=== PATIENT | male | born 1970 | race Caucasian/White ===

== ENCOUNTER 2017-03-28 14:43 | Inpatient (IN) | payer OTHER ==
[2017-03-28 17:08] VITALS: BMI 24.7
--- NOTE | 2017-03-28 17:21 | HP ---
CIWA Score - CIWA Score Nausea/Vomitin-Int. Nausea w/Dry Heave Muscle Tremors: 4-Moderate,w/Arms Extend Anxiety: 5 Agitation: 3 Paroxysmal Sweats: 1-Minimal Palms Moist Orientation: 0-Oriented Tacttile Disturbances: 2-Mild Itch/Numbness/Burn Auditory Disturbances: 0-None Visual Disturbances: 0-None Headache: 1-Very Mild CIWA-Ar Total Score: 20 Admission ROS BHS - HPI Chief Complaint: DETOX TX FOR ALCOHOL DEPENDENCE Allergies/Adverse Reactions: Allergies Allergy/AdvReac Type Severity Reaction Status Date / Time No Known Allergies Allergy Verified 03/28/17 17:05 History of Present Illness: 47 Y/O MALE WITH A HX OF ALCOHOL DEPENDENCE SEEKING DETOX TX. FIRST TIME HERE. Exam Limitations: No Limitations - Ebola screening Have you traveled outside of the country in the last 21 days: No Have you had contact with anyone from an Ebola affected area: No Have you been sick,other than usual withdrawal symptoms: No Do you have a fever: No - Review of Systems Constitutional: Chills, Night Sweats, Changes in sleep EENT: reports: Blurred Vision (WEARS GLASSES/CONTACT LENSES. HAS CONTACT IN LEFT EYE NOW. LOST THE RIGHT CONTACT.) Respiratory: reports: No Symptoms reported Cardiac: reports: Lightheadedness GI: reports: Nausea, Poor Fluid Intake : reports: Frequency Musculoskeletal: reports: Back Pain, Joint Pain, Muscle Pain Integumentary: reports: No Symptoms Reported Neuro: reports: Headache, Numbness, Seizure (LAST EPISODE IN DECEMBER 2016), Tingling, Tremors, Unsteady Gait, Dizziness Endocrine: reports: No Symptoms Reported Hematology: reports: Anemia Psychiatric: reports: Orientated x3, Anxious, Depressed Other Systems: Reviewed and Negative Patient History - Patient Medical History Hx Anemia: Yes (NO CURRENT MED) Hx Asthma: No Hx Chronic Obstructive Pulmonary Disease (COPD): No Hx Cardiac Disorders: No Hx Hypertension: No Hx Hypercholesterolemia: No HX Cerebrovascular Accident: No Hx Seizures: Yes (etoh related last 01/01) Hx Diabetes: No Hx Gastrointestinal Disorders: No Hx Genitourinary Disorders: No Hx Sexually Transmitted Disorders: No Hx Renal Disease (ESRD): No Hx Thyroid Disease: No Hx Human Immunodeficiency Virus (HIV): No (NEGATIVE HX) Hx Hepatitis C: No Hx Depression: Yes (NOT CURRENTLY ON MED) Hx Suicide Attempt: No (DENIES) Hx Schizophrenia: Yes - Patient Surgical History Past Surgical History: Yes Hx Orthopedic Surgery: Yes (RIGHT HAND SX DUE TO FX IN 1980) Anesthesia Reaction: No - PPD History Previous Implant?: Yes Documented Results: Negative w/o proof Implanted On Prior R Admission?: No PPD to be Administered?: Yes - Reproductive History Patient is a Female of Child Bearing Age (11 -55 yrs old): No (MALE) Patient : (N/A) - Smoking Cessation Smoking history: Current every day smoker Have you smoked in the past 12 months: Yes Aproximately how many cigarettes per day: 10 Hx Chewing Tobacco Use: No Initiated information on smoking cessation: Yes 'Breaking Loose' booklet given: 03/28/17 - Substance & Tx. History Hx Alcohol Use: Yes (BEER) Hx Substance Use: No (DENIES) Substance Use Type: Alcohol Hx Substance Use Treatment: Yes (LAST TX AT [facility].) - Substances Abused Alcohol Route: Oral Frequency: Daily Amount used: 12PK BEER Age of first use: 17 Date of Last Use: 03/27/17 Family Disease History - Family Disease History Family History: Denies (EXCEPT 2 AUNTS WITH DM) Admission Physical Exam BHS - Vital Signs Vital Signs: Vital Signs - 24 hr 03/28/17 17:02 Temperature 99.8 F H Pulse Rate 75 Respiratory 18 Rate Blood Pressure 136/87 - Physical General Appearance: Yes: Moderate Distress, Irritable, Anxious HEENTM: Yes: EOMI, Normocephalic, GINA, Pharynx Normal Respiratory: Yes: Chest Non-Tender, Lungs Clear, Normal Breath Sounds, No Respiratory Distress Neck: Yes: No masses,lesions,Nodules, Supple, Trachea in good position Breast: Yes: Breast Exam Deferred Cardiology: Yes: Regular Rhythm, Regular Rate, S1, S2 Abdominal: Yes: Normal Bowel Sounds, Non Tender, Soft Genitourinary: Yes: Other (N/C) Back: Yes: Within Normal Limits Musculoskeletal: Yes: full range of Motion, Gait Steady Extremities: Yes: Normal Range of Motion, Non-Tender, Tremors Neurological: 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: 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 II-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
[2017-03-28] MEDS ORDERED: MAGNESIUM HYDROX 2400MG/30ML ORAL SUSPENSION 30 ML CUP PO PRN (17:31)
[2017-03-28] MEDS ORDERED: guaiFENesin/D-METHORPHAN HB 10 ML UNIT-DOSE CUPS PO PRN (17:31)
[2017-03-28] MEDS ORDERED: hydrOXYzine PAMOATE 25 MG CAPSULE (FP) PO PRN (17:31)
[2017-03-28] MEDS ORDERED: MENTHOL/PHENOL 1 EACH UD MM PRN (17:31)
[2017-03-28] MEDS ORDERED: MAGNESIUM CITRATE 300 ML BOTTLE PO PRN (17:31)
[2017-03-28] MEDS ORDERED: LOPERAMIDE HCL 2 MG CAPSULE PO PRN (17:31)
[2017-03-28] MEDS ORDERED: MAG HYDROX/AL HYDROX/SIMETH 30 ML UNIT-DOSE CUP PO PRN (17:31)
[2017-03-28] MEDS ORDERED: chlordiazePOXIDE HCL 25 MG CAPSULE PO ONE (17:31)
[2017-03-28] MEDS ORDERED: NICOTINE POLACRILEX 2 MG GUM BC PRN (17:31)
[2017-03-28] MEDS ORDERED: IBUPROFEN 400 MG TABLET (FP) PO PRN (17:31)
[2017-03-28] MEDS ORDERED: P-EPHED 60MG/TRIPROLIDI 2.5MG TABLET PO PRN (17:31)
[2017-03-28] MEDS ORDERED: chlordiazePOXIDE HCL 25 MG CAPSULE PO PRN (17:31)
[2017-03-28] MEDS ORDERED: ACETAMINOPHEN 325 MG TABLET (FP) PO PRN (17:31)
[2017-03-28] MEDS: NICOTINE 14 MG/24 HOURS TOPICAL PATCH TD SCH (18:34)
[2017-03-28] MEDS: THIAMINE HCL 100 MG TABLET (FP) PO SCH (22:04)
[2017-03-28] MEDS: diphenhydrAMINE HCL 50 MG CAPSULE PO PRN (22:05)
[2017-03-28] MEDS: chlordiazePOXIDE HCL 25 MG CAPSULE PO SCH (22:05)
[2017-03-28 23:12] LABS: URINE APPEARANCE SL CLOUDY; URINE BILIRUBIN NEGATIVE (NEGATIVE); URINE BLOOD NEGATIVE (NEGATIVE); URINE COLOR LT. YELLOW; URINE GLUCOSE (UA) NEGATIVE (NEGATIVE); URINE KETONE NEGATIVE (NEGATIVE); URINE NITRITE NEGATIVE (NEGATIVE); URINE PROTEIN NEGATIVE (NEGATIVE); URINE UROBILINOGEN 0.2 mg/dL (0.2-1.0)
[2017-03-29] MEDS: chlordiazePOXIDE HCL 25 MG CAPSULE PO SCH ×4 (05:37→22:08)
[2017-03-29 09:46] LABS: MCH 31.4 pg (25.7-33.7); MCHC 33.2 g/dl (32.0-35.9); MEAN CELL VOLUME 94.5 fl (80-96); MEAN PLT VOLUME 8.3 fl (7.5-11.1); PLATELET COUNT 297 K/MM3 (134-434); RDW 15.1 % (11.9-15.9); WHITE BLOOD COUNT 8.5 K/mm3 (4.0-10.0)
[2017-03-29] MEDS: NICOTINE 14 MG/24 HOURS TOPICAL PATCH TD SCH (10:05)
[2017-03-29] MEDS: PRENATAL VITAMINS W/ FOLIC ACID TABLET (FP) PO SCH (10:05)
[2017-03-29 10:11] LABS: ALBUMIN 3.6 g/dl (3.4-5.0); ALK PHOS 269 U/L (45-117); ANION GAP 8 (8-16); BILIRUBIN,TOTAL 0.4 mg/dL (0.2-1.0); CALCIUM 8.9 mg/dL (8.5-10.1); CO2 27 mmol/L (21-32); CREATININE 0.8 mg/dL (0.7-1.3); GLUCOSE,RANDOM 96 mg/dL (74-106); SGOT/AST 25 U/L (15-37); SGPT/ALT 49 U/L (12-78); TOT PROT 6.7 g/dl (6.4-8.2)
--- NOTE | 2017-03-29 10:31 | CONSULT ---
[facility] Psychiatric Consult - Data Date of interview: 03/29/17 Admission source: [facility] Identifying data: First admission to [facility] for this 47 y/o male seeking detox treatment on for alcohol dependence.Patient is single without children,homeless,unemployed and supported on [employer] benefits. Substance Abuse History: Confirmed by patient in this interview. Smoking Cessation. Smoking history: Current every day smoker. Have you smoked in the past 12 months: Yes. Aproximately how many cigarettes per day: 10. Hx Chewing Tobacco Use: No. Initiated information on smoking cessation: Yes. 'Breaking Loose' booklet given: 03/28/17. - Substance & Tx. History. Hx Alcohol Use: Yes (BEER). Hx Substance Use: No (DENIES). Substance Use Type: Alcohol. Hx Substance Use Treatment: Yes (LAST TX AT [facility] - Substances Abused. Alcohol. Route: Oral. Frequency: Daily. Amount used: 12PK BEER. Age of first use: 17. Date of Last Use: 03/27/17 Medical History: Anemia,alcohol-related seizures and a history of orthosurgery for fracture of riight hand (1980). Psychiatric History: Patient admits to one psychiatric hospitalization at [facility].He endorses the diagnosis of MDD ( schizophrenia as per [facility] report : patient denies).Mr Jackson denies history of OPD care.Not on psychotropic medications (survey of recent phrmacy claims shows script dated 01/20/17 for abilify 5 mg Tab # 30).Patient is clearly an unreliable historian.He denies history of suicide attempts. Physical/Sexual Abuse/Trauma History: Patient denies history of abuse. Additional Comment: Drug Screen is negative. Mental Status Exam - Mental Status Exam Alert and Oriented to: Time, Place, Person Cognitive Function: Grossly Intact Patient Appearance: Unkempt, Disheveled Mood: Nervous, Withdrawn Affect: Mood Congruent Patient Behavior: Fatigued, Guarded Speech Pattern: Clear Voice Loudness: Normal Thought Process: Goal Oriented Thought Disorder: Not Present Hallucinations: Denies Suicidal Ideation: Denies Homicidal Ideation: Denies Insight/Judgement: Poor Sleep: Well (self-report) Appetite: Good Gait/Station: Normal Psychiatric Findings - Problem List ([place] 1, 2,3) (1) Alcohol dependence with uncomplicated withdrawal Current Visit: Yes Status: Acute (2) Nicotine dependence Current Visit: Yes Status: Acute (3) Substance induced mood disorder Current Visit: Yes Status: Acute (4) Hx of seizure disorder Current Visit: Yes Status: Chronic (5) History of anemia Current Visit: Yes Status: Suspected - Initial Treatment Plan Initial Treatment Plan: Psychoeducation.Detoxification.Patient declines psychotropic medications other than detox protocol.Observation.
--- NOTE | 2017-03-29 11:21 | PN ---
[facility] CIWA - CIWA Score Nausea/Vomitin-No Nausea/No Vomiting Muscle Tremors: 4-Moderate,w/Arms Extend Anxiety: 4-Mod. Anxious/Guarded Agitation: 4-Moderately Restless Paroxysmal Sweats: 1-Minimal Palms Moist Orientation: 0-Oriented Tacttile Disturbances: 3-Moderate Itch/Numb/Burn Auditory Disturbances: 0-None Visual Disturbances: 0-None Headache: 0-None Present CIWA-Ar Total Score: 16 BHS Progress Note (SOAP) Subjective: ANXIETY,SWEATS,TREMORS,INTERMITTENT SLEEP. Objective: 03/29/17 11:20 Vital Signs Temperature 98.5 F 03/29/17 09:12 Pulse Rate 83 03/29/17 09:12 Respiratory Rate 18 03/29/17 09:12 Blood Pressure 119/76 03/29/17 09:12 O2 Sat by Pulse Oximetry (%) Laboratory Last Values WBC 8.5 K/mm3 (4.0-10.0) 03/29/17 07:00 RBC 4.90 M/mm3 (4.00-5.60) 03/29/17 07:00 Hgb 15.4 GM/dL (11.7-16.9) 03/29/17 07:00 Hct 46.3 % (35.4-49) 03/29/17 07:00 MCV 94.5 fl (80-96) 03/29/17 07:00 MCH 31.4 pg (25.7-33.7) 03/29/17 07:00 MCHC 33.2 g/dl (32.0-35.9) 03/29/17 07:00 RDW 15.1 % (11.9-15.9) 03/29/17 07:00 Plt Count 297 K/MM3 (134-434) 03/29/17 07:00 MPV 8.3 fl (7.5-11.1) 03/29/17 07:00 Sodium 141 mmol/L (136-145) 03/29/17 07:00 Potassium 4.1 mmol/L (3.5-5.1) 03/29/17 07:00 Chloride 106 mmol/L (98-107) 03/29/17 07:00 Carbon Dioxide 27 mmol/L (21-32) 03/29/17 07:00 Anion Gap 8 (8-16) 03/29/17 07:00 BUN 17 mg/dL (7-18) 03/29/17 07:00 Creatinine 0.8 mg/dL (0.7-1.3) 03/29/17 07:00 Creat Clearance w eGFR > 60 (>60) 03/29/17 07:00 Random Glucose 96 mg/dL (74-106) 03/29/17 07:00 Calcium 8.9 mg/dL (8.5-10.1) 03/29/17 07:00 Total Bilirubin 0.4 mg/dL (0.2-1.0) 03/29/17 07:00 AST 25 U/L (15-37) 03/29/17 07:00 ALT 49 U/L (12-78) 03/29/17 07:00 Alkaline Phosphatase 269 U/L (45-117) H 03/29/17 07:00 Total Protein 6.7 g/dl (6.4-8.2) 03/29/17 07:00 Albumin 3.6 g/dl (3.4-5.0) 03/29/17 07:00 Urine Color Lt. yellow 03/28/17 18:30 Urine Appearance Sl cloudy 03/28/17 18:30 Urine pH 8.0 (5.0-8.0) 03/28/17 18:30 Urine Protein Negative (NEGATIVE) 03/28/17 18:30 Urine Glucose (UA) Negative (NEGATIVE) 03/28/17 18:30 Urine Ketones Negative (NEGATIVE) 03/28/17 18:30 Urine Blood Negative (NEGATIVE) 03/28/17 18:30 Urine Nitrite Negative (NEGATIVE) 03/28/17 18:30 Urine Bilirubin Negative (NEGATIVE) 03/28/17 18:30 Urine Urobilinogen 0.2 mg/dL (0.2-1.0) 03/28/17 18:30 Assessment: 03/29/17 11:20 WITHDRAWAL SX Plan: CONTINUE DETOX
--- NOTE | 2017-03-29 13:03 | EKG ---
Test Reason : Blood Pressure : / mmHG Vent. Rate : 065 BPM Atrial Rate : 065 BPM P-R Int : 158 ms QRS Dur : 072 ms QT Int : 396 ms P-R-T Axes : 058 -01 027 degrees QTc Int : 411 ms NORMAL SINUS RHYTHM NORMAL ECG NO PREVIOUS ECGS AVAILABLE REPEAT EKG IF CLINICALLY INDICATED Confirmed by KARIN YAN MD ([id number]) on 03/29/2017 1:02:36 PM Referred By: Confirmed By:KARIN YAN MD
[2017-03-29] MEDS: diphenhydrAMINE HCL 50 MG CAPSULE PO PRN (22:08)
[2017-03-29] MEDS: THIAMINE HCL 100 MG TABLET (FP) PO SCH (22:08)
[2017-03-30] MEDS: chlordiazePOXIDE HCL 25 MG CAPSULE PO SCH ×2 (05:53→10:05)
[2017-03-30] MEDS: PRENATAL VITAMINS W/ FOLIC ACID TABLET (FP) PO SCH (10:06)
[2017-03-30] MEDS: NICOTINE 14 MG/24 HOURS TOPICAL PATCH TD SCH (10:06)
--- NOTE | 2017-03-30 10:49 | PN ---
[facility] CIWA - CIWA Score Nausea/Vomitin-No Nausea/No Vomiting Muscle Tremors: 4-Moderate,w/Arms Extend Anxiety: 5 Agitation: 3 Paroxysmal Sweats: 1-Minimal Palms Moist Orientation: 0-Oriented Tacttile Disturbances: 3-Moderate Itch/Numb/Burn Auditory Disturbances: 0-None Visual Disturbances: 0-None Headache: 0-None Present CIWA-Ar Total Score: 16 BHS Progress Note (SOAP) Subjective: ANXIETY,DECREASED TREMORS,FATIGUE. Objective: 03/30/17 10:48 Vital Signs Temperature 96.1 F L 03/30/17 09:48 Pulse Rate 80 03/30/17 09:48 Respiratory Rate 18 03/30/17 09:48 Blood Pressure 104/75 03/30/17 09:48 O2 Sat by Pulse Oximetry (%) Laboratory Last Values WBC 8.5 K/mm3 (4.0-10.0) 03/29/17 07:00 RBC 4.90 M/mm3 (4.00-5.60) 03/29/17 07:00 Hgb 15.4 GM/dL (11.7-16.9) 03/29/17 07:00 Hct 46.3 % (35.4-49) 03/29/17 07:00 MCV 94.5 fl (80-96) 03/29/17 07:00 MCH 31.4 pg (25.7-33.7) 03/29/17 07:00 MCHC 33.2 g/dl (32.0-35.9) 03/29/17 07:00 RDW 15.1 % (11.9-15.9) 03/29/17 07:00 Plt Count 297 K/MM3 (134-434) 03/29/17 07:00 MPV 8.3 fl (7.5-11.1) 03/29/17 07:00 Sodium 141 mmol/L (136-145) 03/29/17 07:00 Potassium 4.1 mmol/L (3.5-5.1) 03/29/17 07:00 Chloride 106 mmol/L (98-107) 03/29/17 07:00 Carbon Dioxide 27 mmol/L (21-32) 03/29/17 07:00 Anion Gap 8 (8-16) 03/29/17 07:00 BUN 17 mg/dL (7-18) 03/29/17 07:00 Creatinine 0.8 mg/dL (0.7-1.3) 03/29/17 07:00 Creat Clearance w eGFR > 60 (>60) 03/29/17 07:00 Random Glucose 96 mg/dL (74-106) 03/29/17 07:00 Calcium 8.9 mg/dL (8.5-10.1) 03/29/17 07:00 Total Bilirubin 0.4 mg/dL (0.2-1.0) 03/29/17 07:00 AST 25 U/L (15-37) 03/29/17 07:00 ALT 49 U/L (12-78) 03/29/17 07:00 Alkaline Phosphatase 269 U/L (45-117) H 03/29/17 07:00 Total Protein 6.7 g/dl (6.4-8.2) 03/29/17 07:00 Albumin 3.6 g/dl (3.4-5.0) 03/29/17 07:00 Urine Color Lt. yellow 03/28/17 18:30 Urine Appearance Sl cloudy 03/28/17 18:30 Urine pH 8.0 (5.0-8.0) 03/28/17 18:30 Ur Specific [place] 1.020 (1.005-1.025) 03/28/17 18:30 Urine Protein Negative (NEGATIVE) 03/28/17 18:30 Urine Glucose (UA) Negative (NEGATIVE) 03/28/17 18:30 Urine Ketones Negative (NEGATIVE) 03/28/17 18:30 Urine Blood Negative (NEGATIVE) 03/28/17 18:30 Urine Nitrite Negative (NEGATIVE) 03/28/17 18:30 Urine Bilirubin Negative (NEGATIVE) 03/28/17 18:30 Urine Urobilinogen 0.2 mg/dL (0.2-1.0) 03/28/17 18:30 RPR Titer Nonreactive (NONREACTIVE) 03/29/17 07:00 Assessment: 03/30/17 10:49 WITHDRAWAL SX Plan: CONTINUE DETOX
--- NOTE | 2017-03-30 13:33 | DS ---
[facility] Detox Discharge Summary Admission Date: 03/28/17 Discharge Date: 03/30/17 - History Present History: Alcohol Dependence Additional Comments: PT DECLINED TO CONTINUE WITH DETOX STATING HE NEEDED HOUSING. ALERT O X 3 NAD. PT WILL FOLLOW UP AT [facility] FOR MEDICAL CARE NEEDED. Pertinent Past History: SEIZURE DISORDER HX - Physical Exam Results Vital Signs: Vital Signs Temperature 96.1 F L 03/30/17 09:48 Pulse Rate 80 03/30/17 09:48 Respiratory Rate 18 03/30/17 09:48 Blood Pressure 104/75 03/30/17 09:48 O2 Sat by Pulse Oximetry (%) Pertinent Admission Physical Exam Findings: WITHDRAWAL SX Laboratory Last Values WBC 8.5 K/mm3 (4.0-10.0) 03/29/17 07:00 RBC 4.90 M/mm3 (4.00-5.60) 03/29/17 07:00 Hgb 15.4 GM/dL (11.7-16.9) 03/29/17 07:00 Hct 46.3 % (35.4-49) 03/29/17 07:00 MCV 94.5 fl (80-96) 03/29/17 07:00 MCH 31.4 pg (25.7-33.7) 03/29/17 07:00 MCHC 33.2 g/dl (32.0-35.9) 03/29/17 07:00 RDW 15.1 % (11.9-15.9) 03/29/17 07:00 Plt Count 297 K/MM3 (134-434) 03/29/17 07:00 MPV 8.3 fl (7.5-11.1) 03/29/17 07:00 Sodium 141 mmol/L (136-145) 03/29/17 07:00 Potassium 4.1 mmol/L (3.5-5.1) 03/29/17 07:00 Chloride 106 mmol/L (98-107) 03/29/17 07:00 Carbon Dioxide 27 mmol/L (21-32) 03/29/17 07:00 Anion Gap 8 (8-16) 03/29/17 07:00 BUN 17 mg/dL (7-18) 03/29/17 07:00 Creatinine 0.8 mg/dL (0.7-1.3) 03/29/17 07:00 Creat Clearance w eGFR > 60 (>60) 03/29/17 07:00 Random Glucose 96 mg/dL (74-106) 03/29/17 07:00 Calcium 8.9 mg/dL (8.5-10.1) 03/29/17 07:00 Total Bilirubin 0.4 mg/dL (0.2-1.0) 03/29/17 07:00 AST 25 U/L (15-37) 03/29/17 07:00 ALT 49 U/L (12-78) 03/29/17 07:00 Alkaline Phosphatase 269 U/L (45-117) H 03/29/17 07:00 Total Protein 6.7 g/dl (6.4-8.2) 03/29/17 07:00 Albumin 3.6 g/dl (3.4-5.0) 03/29/17 07:00 Urine Color Lt. yellow 03/28/17 18:30 Urine Appearance Sl cloudy 03/28/17 18:30 Urine pH 8.0 (5.0-8.0) 03/28/17 18:30 Ur Specific [place] 1.020 (1.005-1.025) 03/28/17 18:30 Urine Protein Negative (NEGATIVE) 03/28/17 18:30 Urine Glucose (UA) Negative (NEGATIVE) 03/28/17 18:30 Urine Ketones Negative (NEGATIVE) 03/28/17 18:30 Urine Blood Negative (NEGATIVE) 03/28/17 18:30 Urine Nitrite Negative (NEGATIVE) 03/28/17 18:30 Urine Bilirubin Negative (NEGATIVE) 03/28/17 18:30 Urine Urobilinogen 0.2 mg/dL (0.2-1.0) 03/28/17 18:30 RPR Titer Nonreactive (NONREACTIVE) 03/29/17 07:00 - Treatment Hospital Course: Discharged Condition Good - Medication Discharge Medications: Ambulatory Orders NK [No Known Home Medication] 03/28/17 - Diagnosis (1) Alcohol dependence with uncomplicated withdrawal Status: Acute (2) History of anemia Status: Suspected (3) Hx of seizure disorder Status: Chronic - AMA Did Patient Leave Against Medical Advice: Yes (AMA)
[2017-03-30 13:43] VITALS: BP 113/77; PULSE 104; TEMP 96.6
[2017-03-30] MEDS ORDERED: chlordiazePOXIDE 5 MG CAPSULE PO SCH (23:00)
[2017-03-31] MEDS ORDERED: chlordiazePOXIDE HCL 10 MG CAPSULE PO SCH (23:00)
== END 2017-03-30 13:50 | disposition left against medical advice (07) | DRG 894 ==
LOC: YASAS 14:43 → Y3N 17:40
PROVIDERS: ADMIT Internal Medicine; ATTEND Internal Medicine
PROC: HZ2ZZZZ Detoxification Services for Substance Abuse Treatment (ICD-10-PCS; principal; 2017-03-28)
DX: F10.20 Alcohol dependence, uncomplicated (principal); G40.509 Epileptic seizures related to external causes, not intractable, without status epilepticus; F17.210 Nicotine dependence, cigarettes, uncomplicated; F19.24 Other psychoactive substance dependence with psychoactive substance-induced mood disorder; F20.9 Schizophrenia, unspecified; D64.9 Anemia, unspecified; Z86.69 Personal history of other diseases of the nervous system and sense organs
CPT/HCPCS: 36415; 80053; 81003; 85027; 86593; 93005; 93010